=== PATIENT | male | born 1945 | race Caucasian/White ===

== ENCOUNTER 2020-01-14 20:18 | Emergency (ER) | payer OTHER, SELFPAY ==
--- NOTE | ~2020-01-14 | CT_ITS ---
EXAMINATION: CT abdomen pelvis w con EXAM DATE: 01/14/2020 21:46 INDICATION: Right lower quadrant pain. Vomiting. TECHNIQUE: Spiral CT of the abdomen and pelvis was performed following intravenous injection of 100 m L Omnipaque 350. Axial, coronal and sagittal images were reviewed. The dose-length product (DLP) fo r this examination was 639.25 mGy-cm. The exposure was tailored according to patient size (auto mA e xposure control), and iterative reconstruction (ASIR) was used as additional dose reduction technique . Comparison is made to prior examination from 11/30/2018. FINDINGS: There is a right inguinal hernia containing small segment of small bowel, with moderately d istended small bowel proximal to this. Uncertain whether or not this is incarcerated. Only small amou nt of ileal fluid distal to this. There is expected amount of colonic stool. Could be partial or vikash y complete obstruction. The liver, spleen, adrenal glands and pancreas are unremarkable. Gallbladder is unremarkable. No bi liary obstruction. Portal and splenic veins are patent. Kidneys enhance symmetrically. There is no hydronephrosis. There are radiation prostate seeds. There is nodule of soft tissue projecting up i nto the bladder base, contiguous with the prostate measuring 2.6 cm in diameter most likely prostate tissue. Patient did have cystoscopy, stent placed last year, please correlate with report given that finding was present on prior study. Implanted reservoir device, penile corpora implants, tubing in th e left inguinal canal. The bladder is unremarkable. There is no retroperitoneal or pelvic lymphadeno barbara. There is mild to moderate scattered arteriosclerotic disease. The appendix is normal No free intraperitoneal gas. The heart is normal in size. Evidence of prio r ventricular infarction. There are no pericardial or pleural effusions. The lung bases are unremark able. There are no osteoblastic or osteolytic lesions identified. Bilateral L5 spondylolysis with gr kurt 1 anterolisthesis L5 on S1. Distal esophagus has mild edema, probable mild esophagitis in this p atient with stated history of vomiting. IMPRESSION: 1. Small right inguinal hernia containing small bowel loop, at least partially obstructed. Uncertain whether or not this is incarcerated. Moderately distended jejunum. 2. Reflux esophagitis. 3. Bladder base soft tissue most likely prostate extending into bladder, please correlate with prior cystoscopy, stent placement report 2019. Reviewed, dictated and finalized at location A. IMPRESSION: 1. Small right inguinal hernia containing small bowel loop, at least partially obstructed. Uncertain whether or not this is incarcerated. Moderately distende d jejunum. 2. Reflux esophagitis. 3. Bladder base soft tissue most likely prostate extending into bladder, pleas e correlate with prior cystoscopy, stent placement report 2019.
[2020-01-14 20:21] VITALS: BP 117/84; PULSE 111; RESP 20; TEMP 36.6; O2SAT 99
[2020-01-14 20:39] LABS: Basophils Percent Auto 0.3 % (0.2-1.2); Hematocrit 44.1 % (42.0-52.0); Hemoglobin 15.1 g/dL (14.0-18.0); Immature Granulocyte Absolute 0.05 K/mm3 (0.00-0.031); Immature Granulocyte Percent A 0.4 % (0-0.5); Lymphocytes Absolute Auto 1.32 K/mm3 (0.9-3.2); Lymphocytes Percent Auto 11.4 % (18.3-44.2); Mean Corpuscular HGB Conc 34.2 g/dl (32-36); Mean Corpuscular Hemoglobin 29.9 pg (26-34); Mean Corpuscular Volume 87.3 fl (80-100); Mean Platelet Volume 10.4 fl (7.4-10.4); Monocytes Absolute Auto 0.9 K/mm3 (0.1-0.6); Monocytes Percent Auto 7.5 % (2.6-8.5); Neutrophils Absolute Auto 9.3 K/mm3 (1.3-6.7); Neutrophils Percent Auto 80.4 % (45.5-73.1); Platelet Count Result 319 k/mm3 (150-375); Red Blood Count 5.05 M/mm3 (4.6-6.20); Red Cell Distribution Width 13.2 % (11.5-14.5); White Blood Count 11.6 K/mm3 (4.5-10.0)
[2020-01-14 20:52] LABS: Alanine Aminotransferase 20 U/L (4-50); Albumin Level 4.6 g/dL (3.5-5.1); Alkaline Phosphatase 110 U/L (38-126); Anion Gap 13 mmol/L (8-16); Aspartate Amino Transferase 30 U/L (17-59); Bilirubin,Total 0.9 mg/dL (0.2-1.3); Blood Urea Nitrogen 36 mg/dL (9-20); Carbon Dioxide 27 mmol/L (22-30); Chloride 95 mmol/L (98-107); Estimated CRCL calculation 43 ml/min; Estimated Glomerular Filt Rate 50; Glucose 286 mg/dL (75-110); Lipase 17 U/L (23-300); Potassium 4.2 mmol/L (3.4-5.0); Sodium 135 mmol/L (137-145)
--- NOTE | 2020-01-14 20:57 | ED.ABDPAIN ---
HPI - Abdominal Pain General Chief Complaint: Abdominal Pain Stated Complaint: hernia/GERD Time Seen by Provider: 01/14/20 20:50 History of Present Illness HPI narrative: RLQ pain since yesterday. He felt bulging near the inguinal ligament, which he assumed was a hernia. He has felt it in the past, but never this big. Additionally he noted that his abdomen was very distended. He was vomiting throughout the day and he now has minimal pain, his abdomen is no longer distended, and the bulging is gone. Additionally he was having difficulty controlling his blood sugar. Related Data Home Medications Medication Instructions Recorded Confirmed aspirin 81 mg tablet,delayed 81 mg PO DAILY 04/20/19 release clopidogrel 75 mg tablet 75 mg PO DAILY 04/20/19 fluticasone propionate 50 1 spray NASAL DAILY 04/20/19 mcg/actuation nasal spray,suspension insulin syr/ndl U100 half magdy 0.3 #10 each 04/20/19 mL 31 gauge x 1/4 nitroglycerin 0.3 mg sublingual 0.3 mg SUBLINGUAL Q5M PRN 04/20/19 tablet pantoprazole 20 mg tablet,delayed 20 mg PO QAM 04/20/19 release pantoprazole 20 mg tablet,delayed 20 mg PO QAM 04/20/19 release Allergies Allergy/AdvReac Type Severity Reaction Status Date / Time No Known Allergies Allergy Unverified 11/30/18 12:59 Review of Systems Review of Systems: All systems reviewed & are unremarkable except as noted in HPI and below Constitutional: Constitutional: Denies fever(s) Cardiovascular: Cardiovascular: Denies chest pain Respiratory: Respiratory: Denies dyspnea Gastrointestinal: Gastrointestinal: Reports abdominal pain, Reports nausea and Reports vomiting Genitourinary: Genitourinary: Denies dysuria Neurologic: Denies weakness [facility] Past Medical History Medical History ASHD (arteriosclerotic heart disease) Diabetes mellitus HLD (hyperlipidemia) HTN (hypertension) Family History Family History Father Diabetes mellitus Acute myocardial infarction, Onset Age: 84 Mother Family history of malignant neoplasm of ovary, Onset Age: 78 Other Family history of malignant neoplasm Hypertension Social History Social History Smoking status: Light tobacco smoker Smoking end date: 06/06/15 Alcohol intake: never Exam Const: General: no acute distress and alert Nutritional Appearance: well nourished Orientation/consciousness: patient oriented x3 HENMT: Head: normal to inspection Resp: Effort & Inspection: normal respiratory effort Auscultation: clear to auscultation bilaterally Cardio: Rate: regular rate Rhythm: regular rhythm GI: Inspection: non-distended GI Palp: Yes Soft to palpation and Yes Tenderness to palpation present (GI) (mild over right inguinal ligament) Skin: General skin exam: normal color Neuro: General: patient oriented x3 and moves all extremities Speech: normal speech Extrem: General: normal to inspection Course Vital Signs Vital signs: Vital Signs Temperature 36.6 C 01/14/20 20:21 Pulse Rate 111 H 01/14/20 20:21 Respiratory Rate 20 01/14/20 20:21 Blood Pressure 117/84 01/14/20 20:21 Pulse Oximetry 99 01/14/20 20:21 Temperature 36.3 C L 01/14/20 22:55 Pulse Rate 85 01/14/20 22:55 Respiratory Rate 19 01/14/20 22:55 Blood Pressure 125/80 01/14/20 22:55 Pulse Oximetry 95 01/14/20 22:55 MDM - Abdominal Pain MDM Narrative Medical decision making narrative: History concerning hernia with obstruction. Likely resolved at this time. Will obtain CT CT shows hernia with likely partial obstruction. On reevaluation he now has no pain and feels that the hernia is reduced. I cannot palpate it on exam. I discussed the case with Dr. Garcia. He believes that he is safe for discharge, but offered to admit him if
[2020-01-14 21:07] LABS: Add Urine Microscopic? YES; Appearance Urine Clear (Clear); Bilirubin Urine Negative (Negative); Blood Urine 1+ (Negative); Color Urine Yellow (Yellow); Glucose Urine UA 3+ mg/dL (Negative); Hyaline Casts Urine 15-19 /lpf; Ketones Urine Trace mg/dL (Negative); Leukocyte Esterase Ur Negative LEU/UL (Negative); Mucus Urine Rare /lpf; Nitrate Urine Negative (Negative); Protein Urine 1+ mg/dL (Negative); Squamous Epithelial Cell Urine Rare /hpf (Few)
[2020-01-14] MEDS: ONDANSETRON INJ 4 MG/2 ML VIAL IV PUSH (21:12)
[2020-01-14] MEDS: SODIUM CHLORIDE 0.9% IV 1,000 ML 999 ML IV CONT (21:12)
[2020-01-14 22:25] VITALS: BP 131/75; PULSE 99; RESP 18; O2SAT 94
--- NOTE | 2020-01-14 22:26 | PC.NURSE ---
pt placed on 1 l o2 due to oxygen sat in low 90's
[2020-01-14 22:55] VITALS: BP 125/80; PULSE 85; RESP 19; TEMP 36.3; O2SAT 95
== END 2020-01-14 22:56 | disposition home or self-care (01) ==
PROVIDERS: Emergency Medicine; Emergency Provider Emergency Medicine; PCP Emergency Medicine
DX: K40.30 Unilateral inguinal hernia, with obstruction, without gangrene, not specified as recurrent (principal); I25.10 Atherosclerotic heart disease of native coronary artery without angina pectoris; E11.9 Type 2 diabetes mellitus without complications; E78.5 Hyperlipidemia, unspecified; I10 Essential (primary) hypertension; Z87.891 Personal history of nicotine dependence; Z79.82 Long term (current) use of aspirin; Z79.4 Long term (current) use of insulin
CPT/HCPCS: 36415; 74177; 80053; 81001; 83690; 85025; 87086; 96361; 96374; 96375; 99284; J2405; J3010; J7030; Q9967

== ENCOUNTER 2020-01-25 12:42 | Outpatient (CLI) | payer OTHER, SELFPAY ==
--- NOTE | 2020-01-25 12:44 | ECG_ITS ---
Measurements Intervals Wilmer Rate: 57 P: 48 WA: 196 QRS: -30 QRSD: 105 T: 63 QT: 405 QTc: 395 Interpretive Statements SINUS BRADYCARDIA POSSIBLE LEFT ATRIAL ENLARGEMENT BORDERLINE AV CONDUCTION DELAY EXTENSIVE ANTERIOR INFARCT, AGE INDETERMINATE INFERIOR INFARCT, AGE INDETERMINATE BASELINE ARTIFACT- I, II, AVR ABNORMAL ECG Electronically Signed On 01-25-2020 12:53:06 CDT by Konrad Sheikh D.O.
== END 2020-01-25 12:43 | disposition home or self-care (01) ==
PROVIDERS: PCP Emergency Medicine; Visit Provider Surgery
DX: Z01.810 Encounter for preprocedural cardiovascular examination (principal); I10 Essential (primary) hypertension; R94.31 Abnormal electrocardiogram [ECG] [EKG]
CPT/HCPCS: 93005

== ENCOUNTER 2020-01-29 01:57 | Outpatient (CLI) | payer OTHER, SELFPAY ==
[2020-01-29 18:23] LABS: SARS-CoV-2 RNA PCR Negative
== END 2020-01-29 01:58 | disposition home or self-care (01) ==
LOC: ANHCOVIDDT 01:57
PROVIDERS: PCP Emergency Medicine; Visit Provider Surgery
DX: Z01.812 Encounter for preprocedural laboratory examination (principal); Z20.828 Contact with and (suspected) exposure to other viral communicable diseases
CPT/HCPCS: 87635; C9803; U0003

== ENCOUNTER 2020-01-31 00:52 | Day surgery (SDC) | payer OTHER, SELFPAY ==
[2020-01-24 14:56] VITALS: BMI 27.2
--- NOTE | 2020-01-30 11:31 | WPDANESEPPF ---
Anes - Initial Pre Proc Eval Procedure: Operation Date: 01/31/20 14:00 Proposed Procedures p Right Inguinal Hernia Repair - Gurvinder Balbuena MD Date/Time: 01/30/20 11:31 Surgeon: Gurvinder Balbuena MD Pre Op Diagnosis: Right Inguinal Hernia Patient Data Age: 74 Gender: M Height: 1.78 m Weight: 86.2 kg Allergies Allergy/AdvReac Type Severity Reaction Status Date / Time No Known Allergies Allergy Unverified 01/24/20 14:50 Home Medications Medication Instructions Recorded Confirmed Type aspirin 81 mg tablet,delayed 81 mg PO DAILY 04/20/19 01/24/20 History release clopidogrel 75 mg tablet 75 mg PO DAILY 04/20/19 01/24/20 History fluticasone propionate 50 1 spray NASAL PRN PRN 04/20/19 01/24/20 History mcg/actuation nasal spray,suspension insulin syr/ndl U100 half magdy 0.3 #10 each 04/20/19 01/24/20 History mL 31 gauge x 1/4 pantoprazole 20 mg tablet,delayed 20 mg PO QAM 04/20/19 01/24/20 History release amlodipine 10 mg tablet 10 mg PO DAILY #90 tablet 11/26/19 01/24/20 Rx lisinopril 20 mg tablet 20 mg PO DAILY #90 tablet 11/28/19 01/24/20 Rx insulin aspart U-100 100 unit/mL See Rx Instructions SUB-Q TID #30 12/24/19 01/24/20 Rx subcutaneous solution ml atorvastatin 40 mg PO DAILY 01/24/20 01/24/20 History insulin glargine [Lantus U-100 40 unit SUBCUT QAM 01/24/20 01/24/20 History Insulin] Patient hx anesthesia problems: none Family hx anesthesia problems: none PMFSH Past Medical History Medical History (Updated 01/31/20 @ 12:12 by Jose Linda DO) ASHD (arteriosclerotic heart disease) CAD (coronary artery disease) stent x 22018 CKD (chronic kidney disease), stage III Diabetes mellitus HLD (hyperlipidemia) HTN (hypertension) Social History Social History Smoking status: Former smoker Tobacco type: cigars Smoking end date: 01/01/15 Additional smoking assessment comments: SMOKED 2-3 CIGARS/DAY Alcohol intake: never Living arrangements: with family Spiritual care concerns: No Anes - Eval Final PreProcedure Day of Procedure 01/30/20 11:31 Patient weight: overweight Heart: regular rate and rhythm Lungs: clear to auscultation and normal air movement Airway: Mallampati scale class II Neurological: alert and oriented Last oral intake: >/= 8 hours ASA classification: III Emergent: no Anesthetic plan: proceed Anesthesia type and monitoring: general GIVS and standard monitoring Informed Consent: The patient's anesthetic plan and its attendant risks and benefits were discussed with the patient/family/POA. Questions were solicited and answers provided to the satisfaction of the patient/family/POA.
--- NOTE | 2020-01-31 12:00 | WPDHPUPDATE1 ---
History and Physical Update Update Date/Time: 01/31/20 12:00 History and Physical has been reviewed, including an updated exam of the patient. There are NO changes in the patient's condition. Risks, benefits, and alternatives have been discussed and questions answered. Patient agrees to proceed with procedure.
[2020-01-31] MEDS: LACTATED RINGERS 1,000 ML 30 ML IV CONT ×2 (12:45→16:04)
[2020-01-31 12:48] LABS: Glucose Point of Care 148 (65-105)
[2020-01-31] MEDS: ACETAMINOPHEN 500 MG TABLET 1000 MG PO (12:49)
[2020-01-31] MEDS: KETOROLAC 15 MG/ML VIAL (*BKC) IV PUSH (12:49)
[2020-01-31 13:41] VITALS: BP 118/73; PULSE 61; RESP 18; TEMP 36.6; O2SAT 99
[2020-01-31] MEDS: ceFAZolin 2 GM/D5W 50 ML 2 GM/50 ML BAG IVPB (13:58)
--- NOTE | 2020-01-31 15:28 | PM.PROC ---
Procedure Note - Detailed Date of procedure: 01/31/20 Pre-op diagnosis: Right Inguinal Hernia Right inguinal hernia Post-op diagnosis: same (Indirect hernia) Procedure performed: Repair of right inguinal hernia with 6 cm Parietex hernia mesh system Description of procedure: The patient was taken to surgery and IV sedation was administered. The right groin and genitalia were prepped and draped. Proposed incision was marked on the skin. Local was infiltrated into the skin and the deeper subcutaneous tissues. Incision was made and deepened through the subcutaneous. Crossing veins were cauterized and divided. Dissection was carried through Jeronimo's fascia down to the external oblique aponeurosis. The aponeurosis was exposed as was the external ring. Additional local anesthesia was infiltrated deep to the aponeurosis in the area of the spermatic cord and inguinal canal contents. The penile implant and its apparatus were carefully avoided throughout the surgery and were not exposed. The aponeurosis was opened laterally and extended medially through the external ring. The leaves of the aponeurosis were dissected free from the spermatic cord. The ileoinguinal nerve was divided laterally and discarded. The hernia sac was very obvious as it was filled with a very firm but smooth nodule suggestive of necrotic fat. No evidence of bowel was noted. The cord was then mobilized medially on a [place] drain. The cord was dissected back to the internal ring. Dissection was then carried out in the anteromedial spermatic cord. The hernia sac was dissected back to the internal ring. I then opened the hernia sac at its apex. I found what appeared to be infarcted omentum in the hernia. I dissected this out and divided it near the internal ring. It was sent off as a specimen labeled right inguinal hernia content. I then suture ligated the end of the hernia sac with 3 0 Vicryl. The sac was then allowed to retract into the retroperitoneum. A 6 centimeter Parietex [place] was chosen. It was folded to form a plug. It was placed in the defect. The edges were sutured to the transversalis fascia with interrupted 3 0 Vicryl suture. The hernia defect was then partially closed with some additional 3 0 Vicryl suture. The patch was then cut to the appropriate size and placed over the inguinal canal floor. The lateral leaves were passed beyond the cord. The cord was then laid over the patch. The external oblique aponeurosis was closed with interrupted 3 0 Vicryl suture. Jeronimo's fascia was closed with interrupted 3 0 Vicryl suture. Four 0 Vicryl subcuticular skin sutures were placed. The skin was closed finally with a running 4 0 Monocryl skin suture. The wound was dressed with Exofin surgical adhesive. The patient was awakened and taken to recovery in good condition. Sponge and needle counts were correct x2. Anesthesia: MAC and local (0.5% Marcaine with Exparel) Surgeon: Gurvinder Balbuena MD Pediatrician Active Practice: [facility] Estimated blood loss (mL): 5 Drains: No Packing: No Pathology: yes ( right inguinal hernia contents suggestive of fat necrosis of incarcerated hernia and omentum) Complications: None Condition: stable Disposition: same day Findings: Indirect inguinal hernia. No sliding hernia was noted.
[2020-01-31 15:35] VITALS: BP 116/65; PULSE 56; RESP 12; O2SAT 94
[2020-01-31 15:43] LABS: Glucose Point of Care 95 (65-105)
[2020-01-31 16:05] VITALS: BP 157/80; PULSE 67; RESP 16
== END 2020-01-31 16:53 | disposition home or self-care (01) ==
PROVIDERS: PCP Emergency Medicine; Visit Provider Surgery
PROC: (CPT 49505; principal; 2020-01-31 14:00)
DX: K40.90 Unilateral inguinal hernia, without obstruction or gangrene, not specified as recurrent (principal); I12.9 Hypertensive chronic kidney disease with stage 1 through stage 4 chronic kidney disease, or unspecified chronic kidney disease; E11.22 Type 2 diabetes mellitus with diabetic chronic kidney disease; N18.3 Chronic kidney disease, stage 3 (moderate); I25.10 Atherosclerotic heart disease of native coronary artery without angina pectoris; E78.5 Hyperlipidemia, unspecified; Z95.5 Presence of coronary angioplasty implant and graft; Z87.891 Personal history of nicotine dependence; Z79.02 Long term (current) use of antithrombotics/antiplatelets; Z79.82 Long term (current) use of aspirin; Z79.4 Long term (current) use of insulin
CPT/HCPCS: 49505; 88304; A9270; C1781; C9290; J0690; J1885; J2704; J3010; J7120

== ENCOUNTER 2020-08-11 11:11 | Outpatient (CLI) | payer OTHER, MEDICARE, SELFPAY | END 2020-08-11 11:12 | disposition home or self-care (01) | LOC: ANHCOVIDVC 11:11 | PROVIDERS: PCP Emergency Medicine | DX: Z23 Encounter for immunization (principal) | CPT/HCPCS: 0001A; 91300 ==

== ENCOUNTER 2020-09-01 11:10 | Outpatient (CLI) | payer OTHER, MEDICARE, SELFPAY | END 2020-09-01 11:11 | disposition home or self-care (01) | LOC: ANHCOVIDVC 11:10 | PROVIDERS: PCP Emergency Medicine | DX: Z23 Encounter for immunization (principal) | CPT/HCPCS: 0002A; 91300 ==

== ENCOUNTER 2021-01-09 13:51 | Emergency (ER) | payer OTHER, SELFPAY ==
[2021-01-09] VITALS (10 sets, daily range): BP systolic 123–160; BP diastolic 72–87; PULSE 65–84; RESP 7–20; TEMP 36.6; O2SAT 99–100
--- NOTE | ~2021-01-09 | XR_ITS ---
XR elbow LT min 3V DATE: 01/09/2021 14:49 INDICATION: Fall off of roof. Left elbow injury, pain TECHNIQUE: 4 views COMPARISON: None FINDINGS: There is a very subtle nondisplaced radial neck fracture. There is mild elevation of the fa t pads consistent with hemarthrosis. No dislocation. IMPRESSION: Very subtle nondisplaced radial neck fracture with hemarthrosis Reviewed, dictated and finalized at location B.
--- NOTE | ~2021-01-09 | CT_ITS ---
EXAMINATION: CT facial bones wo con DATE: 01/09/2021 14:54 INDICATION: Fall off of ladder. Head injury. TECHNIQUE: Computed tomography (CT) of the facial bones and maxillofacial region was performed withou t intravenous contrast. Automated exposure control and iterative reconstruction technique were employ ed. Exam dose: 272.57 mGy-cm total exam DLP. COMPARISON: None. FINDINGS: There is a comminuted fracture of the head and neck of the right mandible. There is associa willem dislocation at the right temporomandibular joint. The frontozygomatic sutures, orbital rims and guidry, zygomatic arches and remainder the facial bones are intact. . IMPRESSION: Fracture dislocation of the right temporal mandibular joint; comminuted fracture of the right mandibular condyle and neck Reviewed, dictated and finalized at Location A. Reviewed, dictated and finalized at location B. IMPRESSION: Fracture dislocation of the right temporal mandibular joint; commi nuted fracture of the right mandibular condyle and neck
--- NOTE | ~2021-01-09 | XR_ITS ---
EXAMINATION: XR wrist LT min 3V DATE: 01/09/2021 14:50 INDICATION: Left wrist pain, initial encounter TECHNIQUE: Posteroanterior, ulnar deviation, oblique, and lateral views of the left wrist were obtain ed. COMPARISON: None available FINDINGS: There is an acute, traumatic, closed fracture of the pisiform. No additional acute osseous abnormality is identified. There is soft tissue swelling surrounding the fracture. IMPRESSION: 1. Acute pisiform fracture. Reviewed, dictated and finalized at location A. IMPRESSION: 1. Acute pisiform fracture.
--- NOTE | ~2021-01-09 | CT_ITS ---
EXAMINATION: CT chest abdomen pelvis w con DATE: 01/09/2021 16:21 INDICATION: Right flank pain. TECHNIQUE: Computed tomography (CT) of the chest, abdomen, and pelvis was performed with 100 mL Omnip aque 350 intravenous contrast. Automated exposure control and iterative reconstruction technique were employed. The dose-length product was 1584.82 mGy-cm. COMPARISON: CT abdomen and pelvis 01/14/2020 FINDINGS: CHEST CT: There is mild scarring at the lung apices. There is mild atelectasis bilaterally. No pleural effusion . There is left ventricular enlargement of the heart with old infarct. No pericardial effusion. There is a small sliding hiatal hernia. There is mild right-sided gynecomastia. There is mild thoracic spo ndylosis. ABDOMEN/PELVIS CT: The liver, gallbladder, spleen, pancreas, adrenal glands, and kidneys are normal. A penile prosthesis is noted. The prostate is mildly enlarged and contains brachytherapy seeds. The appendix is normal. There are changes of right inguinal hernia repair. There is a right inguinal hernia containing the ap pendix. There are no pathologically enlarged lymph nodes. There is no free intraperitoneal fluid. The re are chronic bilateral L5 pars defects. There is 4 mm anterolisthesis of L4 on L5 L5 on S1. There i s moderate lumbar spondylosis. IMPRESSION: 1. 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 2. Small sliding hiatal hernia. 3. Recurrent right inguinal hernia containing normal appendix. Reviewed, dictated and finalized at location A.
--- NOTE | ~2021-01-09 | CT_ITS ---
EXAMINATION: CT brain wo con INDICATION: Head injury COMPARISON: 07/10/2015 TECHNIQUE: Standard unenhanced head CT. The dose-length product (DLP) was 605.33 mGy-cm. The mA was a djusted according to patient size. Iterative reconstruction technique was employed. FINDINGS: There is no acute intraparenchymal hemorrhage. No evidence of mass lesion. No evidence of a cute infarction. There is mild periventricular and subcortical hypodensity probably related to small vessel ischemic disease. There is mild prominence of the sulci and ventricles related to cerebral atr ophy. Intracranial calcified cerebral atherosclerosis is noted. There are no extra-axial collections. There is no mass effect or midline shift. Changes in the right globe are likely from ocular lens teodora hallie. Changes in the left lobe likely reflect injected silicone oil. There is mild mucosal thickening of the paranasal sinuses. IMPRESSION: 1. No acute intracranial abnormality. 2. Age related findings. Reviewed, dictated and finalized at location A.
--- NOTE | ~2021-01-09 | XR_ITS ---
EXAMINATION: XR chest 1V portable INDICATION: Chest pain TECHNIQUE: Portable AP chest at 1444 hours COMPARISON: 08/15/2013 FINDINGS: The lungs are free of acute opacities. There is no pleural effusion or pneumothorax. Cardio megaly is noted. There is moderate to severe cervical spondylosis. A coronary artery stent is noted. IMPRESSION: 1. No acute cardiopulmonary abnormality. Reviewed, dictated and finalized at location A.
[2021-01-09 15:17] LABS: Basophils Absolute Auto 0.1 K/mm3 (0.0-0.1); Basophils Percent Auto 0.5 % (0.2-1.2); Eosinophils Percent Auto 0.2 % (0-4.4); Hemoglobin 14.1 g/dL (14.0-18.0); Immature Granulocyte Absolute 0.06 K/mm3 (0.00-0.031); Immature Granulocyte Percent A 0.5 % (0-0.5); Lymphocytes Absolute Auto 1.17 K/mm3 (0.9-3.2); Lymphocytes Percent Auto 9.2 % (18.3-44.2); Mean Corpuscular HGB Conc 32.8 g/dl (32-36); Mean Corpuscular Hemoglobin 29.1 pg (26-34); Mean Corpuscular Volume 88.8 fl (80-100); Mean Platelet Volume 10.1 fl (7.4-10.4); Monocytes Absolute Auto 0.9 K/mm3 (0.1-0.6); Monocytes Percent Auto 7.1 % (2.6-8.5); Neutrophils Absolute Auto 10.5 K/mm3 (1.3-6.7); Neutrophils Percent Auto 82.5 % (45.5-73.1); Platelet Count Result 244 k/mm3 (150-375); Red Blood Count 4.84 M/mm3 (4.6-6.20); Red Cell Distribution Width 12.4 % (11.5-14.5); White Blood Count 12.7 K/mm3 (4.5-10.0)
[2021-01-09] MEDS: TETANUS,DIPHTHERIA,AC PERTUSSIS ADULT (0.5 ML) BOOSTRIX IM (15:18)
[2021-01-09 15:29] LABS: Partial Thromboplastin Time 28.7 SECONDS (22.3-36.8); Prothrombin Time 12.7 Seconds (11.1-14.7)
[2021-01-09 15:30] LABS: Alanine Aminotransferase 25 U/L (4-50); Albumin Level 4.3 g/dL (3.5-5.1); Alkaline Phosphatase 120 U/L (38-126); Anion Gap 7 mmol/L (8-16); Aspartate Amino Transferase 36 U/L (17-59); Bilirubin,Total 0.7 mg/dL (0.2-1.3); Blood Urea Nitrogen 16 mg/dL (9-20); Calcium 9.6 mg/dL (8.4-10.2); Carbon Dioxide 27 mmol/L (22-30); Chloride 101 mmol/L (98-107); Estimated CRCL calculation 66 ml/min; Estimated Glomerular Filt Rate > 60; Glucose 176 mg/dL (65-110); Potassium 3.9 mmol/L (3.4-5.0); Sodium 135 mmol/L (137-145)
--- NOTE | 2021-01-09 16:58 | ED.FALL ---
HPI - Fall General Chief Complaint: Fall Stated Complaint: fall from roof Time Seen by Provider: 01/09/21 14:19 Source: patient and RN notes reviewed Mode of arrival: ambulatory Limitations: no limitations History of Present Illness HPI Narrative: This is a 75 year old male who presents for evaluation of facial pain and left wrist pain s/p fall. Patient states he was getting off his roof, and he missed a step on his ladder causing him to fall. He states he fell forward onto his gravel drive way hitting his face. He denies LOC or headache. He has facial swelling, right jaw pain and tongue bleeding. He denies neck pain. He denies sob or abdominal pain. He also reports left elbow and left wrist pain. He has abrasions to both lower legs but he denies pain. He has been able to ambulate without difficulty. He takes Plavix for heart disease with stents. Related Data Home Medications Medication Instructions Recorded Confirmed clopidogrel 75 mg tablet 75 mg PO DAILY 04/20/19 12/02/20 fluticasone propionate 50 1 spray NASAL PRN PRN 04/20/19 12/02/20 mcg/actuation nasal spray,suspension Allergies Allergy/AdvReac Type Severity Reaction Status Date / Time No Known Allergies Allergy Verified 01/09/21 14:13 Review of Systems Review of Systems: All systems reviewed & are unremarkable except as noted in HPI and below PMFSH Past Medical History Medical History ASHD (arteriosclerotic heart disease) CAD (coronary artery disease) stent x 2018 CKD (chronic kidney disease), stage III Diabetes mellitus HLD (hyperlipidemia) HTN (hypertension) Surgical History Surgical History H/O inguinal hernia repair 01/31/20 [facility] repair with 6cm Parietex mesh. Family History Family History Father Diabetes mellitus Acute myocardial infarction, Onset Age: 84 Mother Family history of malignant neoplasm of ovary, Onset Age: 78 Other Family history of malignant neoplasm Hypertension Social History Social History Smoking status: Former smoker Tobacco type: cigars Smoking end date: 06/06/15 Additional smoking assessment comments: SMOKED 2-3 CIGARS/DAY Alcohol intake: never Spiritual care concerns: No Exam Const: General: no acute distress and alert Orientation/consciousness: patient oriented x3 HENMT: Head: normocephalic Ears: TM's normal bilaterally General nose exam: Other nasal findings present (facial nose swelling) Chest: Chest palpation & inspection: tenderness rib (Right lateral) Resp: Effort & Inspection: normal respiratory effort and no retractions Auscultation: clear to auscultation bilaterally Cardio: Rate: regular rate Rhythm: regular rhythm Heart sounds: no murmurs GI: GI Palp: Yes Soft to palpation, Yes Tenderness to palpation present (GI) (RUQ, ) and No Guarding due to palpation present (GI) Auscultation: bowels sounds not normal Skin: Other: abrasions to bilateral anterior lower leg Neuro: General: patient oriented x3 and moves all extremities Extrem: Other: FROM to all extremities; TTP left dorsum wrist with mild swelling. Psych: Mental Status: mental status grossly normal Affect: normal affect Course Reevaluation(s) Reevaluation #1: I have discussed with patient findings of jaw fracture dislocation and left wrist and elbow fracture. He will be placed in c collar and long arm splint. He has been accepted [facility] Date: 01/09/21 Time: 17:12 Consultations Consultation #1: I discussed case with DR. Veliz in [facility]. She accepts patient to [facility] . request patient placed in spine precautions. Date: 01/09/21 Time: 17:05 Vital Signs Vital signs: Vital Signs Temperature 97.8 F 01/09/21 14:09 Pulse Rate 75
[2021-01-09 17:49] LABS: Glucose Point of Care 167 mg/dl (65-105)
== END 2021-01-09 18:53 | disposition short-term general hospital (02) ==
PROVIDERS: Emergency Provider General Practice; PCP Emergency Medicine
DX: S52.135A Nondisplaced fracture of neck of left radius, initial encounter for closed fracture (principal); S02.611A Fracture of condylar process of right mandible, initial encounter for closed fracture; S02.69XA Fracture of mandible of other specified site, initial encounter for closed fracture; S62.162A Displaced fracture of pisiform, left wrist, initial encounter for closed fracture; I25.10 Atherosclerotic heart disease of native coronary artery without angina pectoris; Z95.5 Presence of coronary angioplasty implant and graft; E11.22 Type 2 diabetes mellitus with diabetic chronic kidney disease; I12.9 Hypertensive chronic kidney disease with stage 1 through stage 4 chronic kidney disease, or unspecified chronic kidney disease; N18.30 Chronic kidney disease, stage 3 unspecified; E78.5 Hyperlipidemia, unspecified; Z87.891 Personal history of nicotine dependence; Z79.4 Long term (current) use of insulin; K44.9 Diaphragmatic hernia without obstruction or gangrene; K40.90 Unilateral inguinal hernia, without obstruction or gangrene, not specified as recurrent; I51.7 Cardiomegaly; W11.XXXA Fall on and from ladder, initial encounter
CPT/HCPCS: 29105; 36415; 70450; 70486; 71045; 71260; 73080; 73110; 74177; 80053; 82948; 85025; 85610; 85730; 90471; 90715; 99285; L0140; Q9967

== ENCOUNTER 2021-02-10 11:12 | Outpatient (CLI) | payer OTHER, SELFPAY ==
--- NOTE | ~2021-02-10 | XR_ITS ---
EXAMINATION: XR abdomen/kub 1V EXAM DATE: 02/10/2021 11:33 INDICATION: Calculus of RT kidney, TECHNIQUE: Frontal projection of the upper abdomen, frontal projection lower abdomen/pelvis for inter pretation. Correlation is made to chest abdomen pelvis CT 01/09/2021. FINDINGS: There is moderate amount of colonic stool and gas. No small bowel dilation, nonobstructiv e bowel gas pattern. There are no suspicious calcifications identified. There is no organomegaly suspected. There are bony degenerative changes. IMPRESSION: Unremarkable abdomen x-ray exam. Reviewed, dictated and finalized at location A.
== END 2021-02-10 11:13 | disposition home or self-care (01) ==
LOC: ANHIMG 11:14
PROVIDERS: PCP Emergency Medicine; Visit Provider Urology
DX: N20.0 Calculus of kidney (principal)
CPT/HCPCS: 74018

== ENCOUNTER 2023-09-17 08:00 | Emergency (ER) | payer OTHER, SELFPAY ==
[2023-09-17 08:02] VITALS: BP 146/94; PULSE 84; RESP 18; TEMP 36.6; O2SAT 100
--- NOTE | 2023-09-17 08:15 | ED.NAVMDI ---
HPI - Nausea/Vomiting/Diarrhea General Chief complaint: Nausea/Vomiting/Diarrhea Stated complaint: Diarrhea for Months Time Seen by Provider: 09/17/23 08:15 History of Present Illness HPI Narrative: Patient is a 78 year old male with history of CAD s/p PCI x2 in 2019, CKD stage III, CM, GERD, HTN, HLD, here with diarrhea. Patient notes that his diarrhea has been present for the last 3 months. He denies any prodromal illness, antibiotic use, travel. He notes that he defecates 4 to 5 times a day, is usually liquid in nature. He did contact his primary care doctor's office 1 month ago, they recommended that he go to the emergency department. He was not seen at the emergency department or his primary care doctor since that recommendation. He notes that has been constant, no associated abdominal pain, nausea, vomiting, fever, chills. He denies blood in his stool. His last colonoscopy was about 5 years ago, notes that he has had a polyp here and there during colonoscopies but has otherwise been pretty unremarkable. No personal or family history of colon cancer. He states he has lost 10-12 lb over the last 3 months due to this diarrhea. He additionally is complaining of some lower back pain which has been ongoing for the last 6-8 months. This has been addressed by his primary care doctor, he takes Flexeril, he did take a dose earlier today for his back pain and this seems to have resolved his back pain at this time. Denies any urinary symptoms. Related Data Home Medications Medication Instructions Recorded Confirmed atorvastatin 80 mg tablet 80 mg PO DAILY 11/03/22 06/29/23 carvedilol 6.25 mg tablet 6.25 mg PO BID 11/03/22 06/29/23 cholecalciferol (vitamin D3) 100 100 mcg PO DAILY 11/03/22 06/29/23 mcg (4,000 unit) tablet empagliflozin 10 mg tablet 10 mg PO DAILY 11/03/22 06/29/23 (Jardiance) furosemide 40 mg tablet 40 mg PO DAILY 11/03/22 06/29/23 potassium chloride 10 mEq 10 meq PO DAILY 11/03/22 06/29/23 capsule,extended release sacubitril 49 mg-valsartan 51 mg 1 tablet PO BID 11/03/22 06/29/23 tablet (Entresto) spironolactone 25 mg tablet 25 mg PO DAILY 11/03/22 06/29/23 Allergies Allergy/AdvReac Type Severity Reaction Status Date / Time No Known Allergies Allergy Verified 09/17/23 08:05 Review of Systems Review of Systems: All systems reviewed & are unremarkable except as noted in HPI and below PMFSH Past Medical History Medical History (Updated 09/17/23 @ 11:45 by Yaz Urias MD) Abdominal wall abscess Abnormal stress test Abscess of neck Acquired absence of other left toe(s) Acute recurrent maxillary sinusitis ASHD (arteriosclerotic heart disease) Blindness Body mass index (BMI) 23 or greater (10/06/15) CAD (coronary artery disease) stent x 2018 Carpal tunnel syndrome of right wrist CKD (chronic kidney disease), stage III Diabetes mellitus Elbow fracture, left Encounter for other specified surgical aftercare Epidermal inclusion cyst Erectile dysfunction Fx pisiform-closed GERD (gastroesophageal reflux disease) GERD without esophagitis Hearing loss High cholesterol History of prostate cancer History of recent fall HLD (hyperlipidemia) HLD (hyperlipidemia) HTN (hypertension) HTN (hypertension) Impacted cerumen of both ears Leg swelling Mandibular fracture Neck mass Patient had no falls in past year Pneumonia Prostate CA Radial head fracture, closed Right inguinal hernia Right-sided low back pain without sciatica SOB (shortness of breath) Type 2 diabetes mellitus without complication Vision changes Weakness of left upper extremity Wears glasses Wrist fracture, left Surgical History Surgical History (Updated 08/04/23 @ 12:36 by Joan Crowder MA) H/O heart artery stent H/O inguinal hernia repair 01/31/20 RIH repair with 6cm Parietex mesh. History of penile implant History of penile implant Family History Family History (Reviewed 06/29/23 @ 13:20 by Roque Olson
[2023-09-17 09:49] LABS: Alanine Aminotransferase 35 U/L (6-50); Albumin Level 5.1 g/dL (3.5-5.1); Alkaline Phosphatase 118 U/L (38-126); Anion Gap 5 mmol/L (4-12); Aspartate Amino Transferase 42 U/L (17-59); Bilirubin,Total 1.2 mg/dL (0.2-1.3); Blood Urea Nitrogen 16 mg/dL (9-20); Calcium 10.5 mg/dL (8.4-10.2); Carbon Dioxide 31 mmol/L (22-30); Chloride 102 mmol/L (98-107); Estimated CRCL calculation 92 ml/min; Estimated Glomerular Filt Rate > 60; Glucose 152 mg/dL (65-110); Lipase 28 U/L (23-300); Sodium 138 mmol/L (137-145)
[2023-09-17 10:11] LABS: Basophils Percent Auto 0.4 % (0.2-1.2); Eosinophils Absolute Auto 0.1 K/mm3 (0-0.3); Eosinophils Percent Auto 1.8 % (0-4.4); Hematocrit 43.3 % (42.0-52.0); Hemoglobin 14.2 g/dL (14.0-18.0); Immature Granulocyte Absolute 0.02 K/mm3 (0.00-0.031); Immature Granulocyte Percent A 0.3 % (0-0.5); Lymphocytes Percent Auto 23.9 % (18.3-44.2); Mean Corpuscular HGB Conc 32.8 g/dl (32-36); Mean Corpuscular Hemoglobin 29.6 pg (26-34); Mean Corpuscular Volume 90.2 fl (80-100); Mean Platelet Volume 10.6 fl (7.4-10.4); Monocytes Absolute Auto 0.6 K/mm3 (0.1-0.6); Monocytes Percent Auto 9.6 % (2.6-8.5); Neutrophils Absolute Auto 4.3 K/mm3 (1.3-6.7); Platelet Count Result 167 k/mm3 (150-375); White Blood Count 6.7 K/mm3 (4.5-10.0)
[2023-09-17 10:51] LABS: IFOB Positive Control Positive; Immunochemical Fecal Occult Bl Negative (N)
[2023-09-17 11:29] LABS: Toxigenic C. Diff NEGATIVE (NEGATIVE)
== END 2023-09-17 12:05 | disposition home or self-care (01) ==
PROVIDERS: Emergency Provider Student in an Organized Health Care Education/Training Program; PCP Emergency Medicine
DX: R19.7 Diarrhea, unspecified (principal); I25.10 Atherosclerotic heart disease of native coronary artery without angina pectoris; I12.9 Hypertensive chronic kidney disease with stage 1 through stage 4 chronic kidney disease, or unspecified chronic kidney disease; E11.22 Type 2 diabetes mellitus with diabetic chronic kidney disease; N18.30 Chronic kidney disease, stage 3 unspecified; E78.00 Pure hypercholesterolemia, unspecified; K21.9 Gastro-esophageal reflux disease without esophagitis; Z95.5 Presence of coronary angioplasty implant and graft; Z87.01 Personal history of pneumonia (recurrent); Z85.46 Personal history of malignant neoplasm of prostate; Z87.891 Personal history of nicotine dependence; Z79.84 Long term (current) use of oral hypoglycemic drugs; Z79.4 Long term (current) use of insulin
CPT/HCPCS: 36415; 80053; 82274; 83690; 85025; 87045; 87177; 87209; 87427; 87449; 87493; 99283

== ENCOUNTER 2024-09-09 16:10 | Emergency (ER) | payer OTHER, SELFPAY ==
[2024-09-09] VITALS (21 sets, daily range): BP systolic 158–186; BP diastolic 73–90; PULSE 55–76; RESP 10–20; TEMP 35.3–36.6; O2SAT 100
--- NOTE | ~2024-09-09 | XR_ITS ---
CHEST RADIOGRAPH CLINICAL HISTORY: sob . COMPARISON: 01/09/2021 TECHNIQUE: Single portable view of the chest. FINDINGS The left mid lung is partially obscured due to pacemaker/AICD generator. Wires project over the right atrium and right ventricle. The remainder of the cardiomediastinal silhouette is otherwise unremarkable. The lungs are clear. IMPRESSION: No focal infiltrate or effusion. Reviewed, dictated and finalized at location A.
[2024-09-09] MEDS: DEXTROSE 10% IV CONT (16:19)
[2024-09-09 16:46] LABS: Basophils Percent Auto 0.4 % (0.2-1.2); Eosinophils Absolute Auto 0.1 K/mm3 (0-0.3); Eosinophils Percent Auto 1.3 % (0-4.4); Hematocrit 47.8 % (42.0-52.0); Hemoglobin 15.2 g/dL (14.0-18.0); Immature Granulocyte Absolute 0.02 K/mm3 (0.00-0.031); Immature Granulocyte Percent A 0.2 % (0-0.5); Lymphocytes Absolute Auto 3.19 K/mm3 (0.9-3.2); Lymphocytes Percent Auto 37.3 % (18.3-44.2); Mean Corpuscular HGB Conc 31.8 g/dl (32-36); Mean Corpuscular Hemoglobin 29.3 pg (26-34); Mean Corpuscular Volume 92.3 fl (80-100); Mean Platelet Volume 10.5 fl (7.4-10.4); Monocytes Absolute Auto 0.8 K/mm3 (0.1-0.6); Monocytes Percent Auto 9.3 % (2.6-8.5); Neutrophils Absolute Auto 4.4 K/mm3 (1.3-6.7); Neutrophils Percent Auto 51.5 % (45.5-73.1); Platelet Count Result 235 k/mm3 (150-375); Red Blood Count 5.18 M/mm3 (4.6-6.20); Red Cell Distribution Width 12.9 % (11.5-14.5); White Blood Count 8.6 K/mm3 (4.5-10.0)
--- OUTSIDE RECORDS SUMMARY | 2024-09-09 16:54 | XMS_ITS | CONTINUITY OF CARE DOCUMENT ---
Author Name mckinley sen Address Unknown Organization [facility] Address [address] [place] [address] [address] [place] [address] Phone [phone] Care Team Providers Care Manager Lpn Name Role Phone mckinley sen Unavailable Unavailable
--- OUTSIDE RECORDS SUMMARY | 2024-09-09 16:54 | XMS_ITS | Referral Summary ---
Author Organization [place] [address] Address [address] [place] [phone] Care Team Providers Care Hospice Bereavement Coordinator Name Role Phone Roque Hinton MD Primary Care Provide r Roque Hinton MD Unavailable [phone] Encounters Date Type Department Care Team Description 08/30/2024 Telephone [facility] [address] [place] [address] [place] [phone] Amarjit Fountain MD 08/28/2024 Telephone [facility] [address] [place] [address] [place] [phone] Amarjit Fountain MD 08/27/2024 Documentation [facility] [address] [place] [address] [place] [phone] Eliza Huizar MA 08/15/2024 1:30 PM CDT Ancillary Procedure [facility] [address] [place] [address] [place] [phone] Automatic implantable cardiac defibrillator in situ (Primary Dx); Ischemic cardiomyopathy 08/14/2024 Telephone [facility] Medical [facility] Cardiology [address] [facility] [address] [place] [phone] Amarjit Fountain MD from Last 3 Months Allergies No known active allergies Medications cholecalcifero l (VITAMIN D-3) 4,000 unit capsule Take 0.0003 capsules (1 Units total) by mouth daily Active fluticasone propionate (FLONASE) 50 mcg/actuation nasal spray Administer 1 spray into each nostril daily Active TOUJEO MAX 300 unit/mL (3 mL) pen for injection INJECT 50 UNIT SUBCUTANEOUSLY EVERY MORNING 3 Active insulin aspart (NovoLOG) 100 unit/mL vial for injection Inject 0-20 Units under the skin 3 (three) times a day before meals Sliding scale Active ascorbic acid, vitamin C, (VITAMIN C) 1,000 mg CR tablet Take 1 tablet (1,000 mg total) by mouth daily Active atorvastatin (LIPITOR) 80 mg tablet TAKE 1 TABLET BY MOUTH EVERY DAY 90 tablet [address] (PROTONIX) 40 mg EC tablet Take 1 tablet (40 mg total) by mouth every morning 4 Active tamsulosin (FLOMAX) 0.4 mg extended release capsule Take 1 capsule (0.4 mg total) by mouth daily 4 Active cyclobenzaprin e (FLEXERIL) 10 mg tablet Take 1 tablet (10 mg total) by mouth 3 (three) times a day as needed 4 Active clopidogreL (PLAVIX) 75 mg tablet TAKE 1 TABLET BY MOUTH EVERY DAY 90 tablet 3 4 Active empagliflozin (Jardiance) 10 mg tablet Take one tablet by mouth once daily. 90 tablet 2 4 Active potassium chloride ER 10 mEq CR tablet TAKE 1 TABLET BY MOUTH EVERY DAY 90 tablet 2 5 Active sacubitriL-kofi sartan (ENTRESTO) 49-51 mg tabletIndicati ons:chronic heart failure Take 1 tablet by mouth 2 (two) times a day 180 tablet 3 5 Active carvediloL (COREG) 6.25 mg tablet TAKE 1 TABLET BY MOUTH TWICE A DAY WITH MEALS 180 tablet 3 5 Active Active Problems Problem Noted Date Diagnosed Date Ischemic cardiomyopathy 03/09/2023 Automatic implantable cardiac defibrillator in s itu 03/09/2023 Overview (03/09/2023): Medtronic Dual ICD. Dx; ICM. DOI 04/13/2023-Kahanda. Delgado. Carelink remote. GERD (gastroesophageal reflux disease) Coronary artery disease invo lving samish coronary artery of samish heart with unstable angina pectoris Essential hypertension Dyslipidemia Immunizations Immunization Administration Dates Next Due Influenza, Unspecified 04/06/2017 Social History Tobacco Use Types Packs/Day Years Used Date Smoking Tobacco: Former Cigarettes Q uit: 02/12/2016 Smokeless Tobacco: Never Tobacco Cessation:Counseling Given: Not Answered Alcohol Use Standard Drinks/Week Comments No 0 (1 standard drink = 0.6 oz pur e alcohol) AUDIT-C Answer Date Recorded Q1: How often do you have a drink containing alcohol? Never 10/14/2022 Q2: How many drinks containi ng alcohol do you have on a typical day when you are drinking? Patient does not drink Q3: How often do you have si x or more drinks on one occasion? Never 10/14/2022 Personal Safety Answer Date Recorded Have you ever been in or are you currently in a harmful physical or emotional relationship or is someone making you feel afraid or unsafe? Denies 04/13/2023 Sex and Gender Information Value Date Recorded Sex Assigned at Not on file Legal Sex Male 8:49 AM INSTRUMENTATION MANAGER Gender Identity Not on file Sexual Orientation Not on file Last Filed Vital Signs Vital Sign Reading Time Taken Comments Blood Pressure 102/70 02/29/2024 1:16 PM CDT Pulse 64 02/29/2024 1:16 PM CDT Temperature 36.8 C (98.2 F) 04/13/2023 11:27 PM INSTRUMENTATION MANAGER Respiratory Rate 16 02/14/2024 11:15 AM CDT Oxygen Saturation 97% 02/29/2024 1:16 PM CDT Inhaled Oxygen Concentration - - Weight 83.1 kg (183 lb 3.2 oz) 02/29/2024 1:16 P M CDT Height 177.8 cm (5' 10 ) 02/29/2024 1:16 PM CDT Body Mass Index 26.29 02/29/2024 1:16 PM CDT Plan of Treatment Not on file Medical Devices Implanted Type Area Transactional Paralegal Device Identifier Shelf Expiration Date Model / Serial / Lot Medtronic Inc [place] Icd Mri Surescan Df4 [id number] - [id number] - [id number] Implanted:Qty: 1 on 04/13/2023 by Riley Cano MD at [facility] ICD Medtronic Inc 06/19/2024 [id number] / [id number] / Medtronic Inc Capsurefix Novus 6.2fr 2mm 52cm Bipolar Screw In Implantable Latex Free 5076-52 - [id number] - [id number] Implanted:Qty: 1 on 04/13/2023 by Riley Cano MD at [facility] Lead Right: Atria Medtronic Inc 11/30/2024 5076-52 / [id number] / Medtronic Inc Sprint Quattro Secure 62cm Tripolar Screw In Extendable [id number] - [id number] - [id number] Implanted:Qty: 1 on 04/13/2023 by Riley Cano MD at [facility] Lead Right: Ventricle Medtronic Inc 02/02/2025 [id number] / [id number] / System Coronary Stent Synergy Pebax Everolimus Eluting Native Chromium Plga L28 Mm L144 Cm Od2.5 Mm Radiopaque 1 Access Port Inflation Lumen Accepts .014 In Guidewire - [id number] Implanted:Qty: 1 on 05/20/2017 by Amarjit Fountain MD at [facility] [employer] [place] 11/24/2017 [id number] / / [id number] System Coronary Stent Synergy Pebax Everolimus Eluting Native Chromium Plga L24 Mm L144 Cm Od2.75 Mm Radiopaque 1 Access Port Inflation Lumen Accepts .014 In Guidewire - [id number] Implanted:Qty: 1 on 05/20/2017 by Amarjit Fountain MD at [facility] [employer] [place] 06/24/2017 [id number] / / [id number] Card[employer] [facility] Device Vascular Closure Femoral Artery Bioabsorbable Dual Method Vascade 6-7fr Collagen [id number] - [id number] Implanted:Qty: 1 on 09/24/2022 by Amarjit Fountain MD at [facility] Medical [facility] 05/20/2024 [id number] / / [id number] Medtronic Card Vasc Surgery 3.0 X 08mm [place] Rx Coronary Stent [id number] - [id number] Implanted:Qty: 1 on 10/14/20[facility] 07/24/2024 [id number] / / [id number] Access Closure Inc Mynx Control 6-7fr 2 Mode Balloon Catheter Sealant Lock Syringe [id number] - [id number] Implanted:Qty: 1 on 10/14/2022 by Amarjit Fountain MD at [facility] [employer] 04/05/2024 [id number] / / [id number] Procedures Procedure Name Priority Date/Time Associated Diagnosis Comments DEVICE CHECK - IN OFFICE Routine 08/15/2024 12:50 PM CDT Ischemic cardiomyopathy from Last 3 Months Results * DEVICE CHECK - IN OFFICE (08/15/2024 12:50 PM CDT) Anatomical Region Laterality Modality Other Narrative 08/16/2024 10:55 AM CDT Medtronic Dual ICD. Dx; ICM. DOI 04/13/2023-Kahanda. Deglado. Carelink remote. Supervising MD: Dr Bell. Interrogation of AAI<>DDD ICD demonstrated appropriate device function. Left pectoral incision well approximated without redness, drainage, or edema noted. Battery function-3.03V, 12.4 years remaining battery longevity to DEANN. Charge time-3.9 seconds. Appropriate lead measurements noted. Presenting rhythm- -VS-Sinus Bradycardia @ 58 bpm. AP-13%, RAG GRADER-<0.1%. No Atrial high rate episodes noted. 1 Ventricular tachy arrhythmia recorded, iegm NSVT, self terminated. Medications; Plavix, Coreg, Entresto. No programming changes made to device settings. Office device f/u 11/20/2025. Carelink remote f/u 11/21/2024. Lulu Carranza, RN Amarjit Fountain MD CV CARDIAC SERVICES PROCEDURES F inal Result from Last 3 Months Insurance [facility] Member Subscriber Plan / Payer (Ef fective 2012-Present) Name:JARROD ALEMAN Relation to Subscriber:Self Name:Jarrod Aleman Payer ID:[id number] ([facility]) Type:MEDICARE RISK OTHER Address: [address] [place] [id number] Advance Directives For more information, please contact: [phone] * Full Code (Latest Code Status on File) Date Activated Date Inactivated Comments 04/13/2023 2:38 PM 04/14/2023 3:34 PM * Full Code Date Activated Date Inactivated Comments 05/20/2017 5:07 PM 05/21/2017 2:38 PM Care Teams Hospice Bereavement Coordinator Relationship Specialty Start Date End Date Roque Hinton MD [address] [place] [address] PCP - General Emergency Medicine 04/11/17 Roque Hinton MD [address] [place] [address] Emergency Medicine 06/20/17
--- OUTSIDE RECORDS SUMMARY | 2024-09-09 16:54 | XMS_ITS | Encounter Summary ---
Author Organization [facility] Address [address] [place] [address] Care Team Providers Care Glass Blower Name Role Phone Roque Hinton MD Primary Care Provide r Roque Hinton MD Unavailable +- [phone] Encounter Details Date Type Department Care Team (Late st Contact Info) Description 07/12/2017 Orders Only [facility] Information Management [address] [place] [id number] Scanning, Provider Social History Tobacco Use Types Packs/Day Years Used Date Smoking Tobacco: Former Smokeless Tobacco: Never Alcohol Use Standard Drinks/Week Comments No 0 (1 standard drink = 0.6 oz pur e alcohol) Sex and Gender Information Value Date Recorded Sex Assigned at Not on file Legal Sex Male 8:49 AM SOUND RANGING CREWMEMBER Gender Identity Not on file Sexual Orientation Not on file documented as of this encounter Plan of Treatment Not on file documented as of this encounter Procedures Procedure Name Priority Date/Time Associated Diagnosis Comments SCAN - LABS 07/12/2017 12:00 AM SOUND RANGING CREWMEMBER documented in this encounter Results * SCAN - LABS (07/12/2017 12:00 AM SOUND RANGING CREWMEMBER) us Provider Scanning Edited Result - Final documented in this encounter Visit Diagnoses Not on filedocumented in this encounter Care Teams Glass Blower Relationship Specialty Start Date End Date Roque Hinton MD [address] [place] [address] PCP - General Emergency Medicine 04/11/17 Roque Hinton MD [address] [place] [address] Emergency Medicine 06/20/17 documented as of this encounter
--- OUTSIDE RECORDS SUMMARY | 2024-09-09 16:54 | XMS_ITS | Clinical Summary ---
Author Organization [facility] [address] [facility] [address] Address [address] [place] [address] Care Team Providers Care Vascular Neurologist Name Role Phone Roque Hinton MD Primary Care Provide r Roque Hinton MD Unavailable +- [phone] Allergies No known active allergies Medications cholecalcifero [...] reflux disease) Coronary artery disease invo lving quileute coronary artery of quileute heart with unstable angina pectoris Essential hypertension Dyslipidemia Encounters Date Type Department Care Team Description 08/30/2024 Telephone [facility] Medical [facility] Cardiology [address] [place] [address] [place] [phone] Amarjit Fountain MD 08/28/2024 Telephone [facility] Cardiology [address] [place] [address] [place] [phone] Amarjit Foutnain MD 08/27/2024 Documentation [facility] Cardiology [address] [facility] [address] [place] [phone] Eliza Huizar MA 08/15/2024 1:30 PM CDT Ancillary Procedure [facility] Cardiology [address] [facility] [address] [place] [phone] Automatic implantable cardiac defibrillator in situ (Primary Dx); Ischemic cardiomyopathy 08/14/2024 Telephone [facility] Cardiology [address] [facility] [address] [place] [phone] Amarjit Fountain MD from Last 3 Months Immunizations Immunization Administration Dates Next Due Influenza, Unspecified 04/06/2017 Surgical History Surgery Date Site/Laterality Comments CATARACT EXTRACTION W/ INTRAOCULAR LENS IMPLANT Right Medical History Medical History Date Comments Diabetes mellitus (HCC) Hypertension GERD (gastroesophageal reflux disease) Type 2 diabetes mellitus (HCC) Arthritis Automatic implantable cardiac defibrillator in s itu Family History Medical History Relation Name Comments Heart disease Father Colon cancer Mother Relation Name Status Comments Father Mother Social History Tobacco Use Types Packs/Day Years [...] on file Legal Sex Male 8:49 AM HOSPITAL RECEIVING CLERK Gender Identity Not on file Sexual Orientation Not on file Obstetrics History Last Filed Vital Signs Vital Sign Reading Time Taken Comments Blood Pressure 102/70 02/29/2024 1:16 PM CDT Pulse 64 02/29/2024 1:16 PM CDT Temperature 36.8 C (98.2 F) 04/13/2023 11:27 PM HOSPITAL RECEIVING CLERK Respiratory Rate 16 02/14/2024 11:15 AM CDT Oxygen Saturation 97% 02/29/2024 1:16 PM CDT Inhaled Oxygen Concentration - - Weight 83.1 kg (183 lb 3.2 oz) 02/29/2024 1:16 P M CDT Height 177.8 cm (5' 10 ) 02/29/2024 1:16 PM CDT Body Mass Index 26.29 02/29/2024 1:16 PM CDT Plan of Treatment Health Maintenance Due Date Last Done Comments Depression Screening 1945 Hepatitis C Screening 1945 Hepatitis B Screening 08/11/1965 Abdominal Aortic Aneurysm (A AA) Screen 08/11/2012 Well Visit 65+ 08/11/2012 DTaP/Tdap/Td Vaccine (2 - Td or Tdap) 06/06/2013 06/06/2003 Zoster Vaccine (2 of 3) 12/23/2017 10/28/2017, 08/23 Pneumococcal vaccine 65+ (2 of 2 - PCV) 08/23/2018 08/23/2017, 04/06/2006 Fall Risk Assessment 04/14/2024 04/14/2023 Influenza Vaccine (Season Ended) 2025 04/06/2017, 03/01/2012, 03/17/2011, Additional history exists Medical Devices Implanted Type Area Catapult And Arresting Gear Officer Device Identifier Shelf Expiration Date Model / Serial / Lot Medtronic Inc [place] [address] Icd Mri Surescan Df4 [id number] - [id number] - [id number] Implanted:Qty: 1 on 04/13/2023 by Riley Cano MD at [facility] ICD Medtronic Inc 06/19/2024 [id number] / [id number] / Medtronic Inc Capsurefix Novus 6.2fr 2mm 52cm Bipolar Screw In Implantable Latex Free 5076-52 - [id number] - [id number] Implanted:Qty: 1 on 04/13/2023 by Riley Cano MD at [facility] Lead Right: Atria Medtronic Inc 11/30/2024 5076-52 / [id number] / Medtronic Inc Sprint Quattro Secure 62cm Tripolar Screw In Extendable [id number] - [id number] - [id number] Implanted:Qty: 1 on 04/13/2023 by Riley Cano MD at [facility] Lead Right: Ventricle Medtronic Inc 02/02/2025 [id number] / [id number] / System Coronary Stent Synergy Pebax Everolimus Eluting [place] Chromium Plga L28 Mm L144 Cm Od2.5 Mm Radiopaque 1 Access Port Inflation Lumen Accepts .014 In Guidewire - [id number] Implanted:Qty: 1 on 05/20/2017 by Amarjit Fountain MD at [facility] [employer] 11/24/2017 [id number] / / [id number] System Coronary Stent Synergy Pebax Everolimus Eluting [place] Chromium Plga L24 Mm L144 Cm Od2.75 Mm Radiopaque 1 Access Port Inflation Lumen Accepts .014 In Guidewire - [id number] Implanted:Qty: 1 on 05/20/2017 by Amarjit Fountain MD at [facility] [employer] 06/24/2017 [id number] / / [id number] [employer] Device Vascular Closure Femoral Artery Bioabsorbable Dual Method Vascade 6-7fr Collagen [id number] - [id number] Implanted:Qty: 1 on 09/24/2022 by Amarjit Fountain MD at [facility] [employer] 05/20/2024 [id number]- [id number] / / [id number] [facility] Vasc Surgery 3.0 X 08mm [place] Rx Coronary Stent [id number] - [id number] Implanted:Qty: 1 on 10/14/2022 by Amarjit Fountain MD at [facility] Vasc Surgery 07/24/2024 [id number] / / [id number] Access Closure Inc Mynx Control 6-7fr 2 Mode Balloon Catheter Sealant Lock Syringe [id number] - [id number] Implanted:Qty: 1 on 10/14/2022 by Amarjit Fountain MD at [facility] [employer] 04/05/2024 [id number] / / [id number] Procedures Procedure Name Priority Date/Time Associated Diagnosis Comments DEVICE CHECK - IN OFFICE Routine 08/15/2024 12:50 PM CDT Ischemic cardiomyopathy from Last 3 Months Results * DEVICE CHECK - IN OFFICE (08/15/2024 12:50 PM CDT) Anatomical Region Laterality Modality Other Narrative 08/16/2024 10:55 AM CDT Medtronic Dual ICD. Dx; ICM. DOI 04/13/2023-Kahanda. Delgado. Carelink remote. Supervising MD: Dr Bell. Interrogation of AAI<>DDD ICD demonstrated appropriate device function. Left pectoral incision well approximated without redness, drainage, or edema noted. Battery function-3.03V, 12.4 years remaining battery longevity to DEANN. Charge time-3.9 seconds. Appropriate lead measurements noted. Presenting rhythm- -VS-Sinus Bradycardia @ 58 bpm. AP-13%, BLENDING OPERATOR-<0.1%. No Atrial high rate episodes noted. 1 Ventricular tachy arrhythmia recorded, iegm NSVT, self terminated. Medications; Plavix, Coreg, Entresto. No programming changes made to device settings. Office device f/u 11/20/2025. Carelink remote f/u 11/21/2024. Lulu Carranza, RN Amarjit Fountain MD CV CARDIAC SERVICES PROCEDURES F inal Result from Last 3 Months Insurance [facility] Advance Directives For more information, please contact: [phone] * Full Code (Latest Code Status on File) Date Activated Date Inactivated Comments 04/13/2023 2:38 PM 04/14/2023 3:34 PM * Full Code Date Activated Date Inactivated Comments 05/20/2017 5:07 PM 05/21/2017 2:38 PM Care Teams Vascular Neurologist Relationship Specialty Start Date End Date Roque Hinton MD [address] [place] [address] PCP - General Emergency Medicine 04/11/17 Roque Hinton MD [address] [place] [address] Emergency Medicine 06/20/17
--- OUTSIDE RECORDS SUMMARY | 2024-09-09 16:54 | XMS_ITS | Clinical Summary ---
Author Organization [email or web address] Address [address] [place] [address] Care Team Providers Care Steam Bone Press Tender Name Role Phone Roque Hinton MD Primary Care Provider [phone] Source Comments [email or web address],non-owned Affiliates and Associated Physician Practices is amultiple site organization consisting of ambulatory clinics and hospital sitesin [place], [place], [place] and [place]. This disclosure is being madepursuant to the Care Everywhere program and may not contain all information available regarding this patient. Last updated 18.[email or web address] Allergies No known active allergies Medications * Be aware that medications may not be up to date on this document. Alwaysverify current medications with the patient. Medication Sig Dispensed Refills Start Date End Date Status chlorhexidine (PERIDEX) 0.12 % solution Swish and spit 2 times daily 473 mL 01/09/2021 Active HYDROcodone-acetami nophen 7.5-325 MG/15ML solution Take 5 mL by mouth every 4 hours as needed for Pain Do not exceed 3 grams of acetaminophen (TYLENOL) daily. 118 mL 01/09/2021 Active Social History Tobacco Use Types Packs/Day Years Used Date Smoking Tobacco: Never Smokeless Tobacco: Never Alcohol Use Standard Drinks/Week Comments Not Currently 0 (1 standard drink = 0.6 oz pur e alcohol) Sex and Gender Information Value Date Recorded Sex Assigned at Not on file Gender Identity Not on file Sexual Orientation Not on file Last Filed Vital Signs Vital Sign Reading Time Taken Comments Blood Pressure 165/104 01/10/2021 12:00 AM CDT Pulse 98 01/10/2021 12:00 AM CDT Temperature 36.9 C (98.5 F) 01/09/2021 7:32 PM CDT Respiratory Rate 16 01/10/2021 12:00 AM CDT Oxygen Saturation 92% 01/10/2021 12:00 AM CDT Inhaled Oxygen Concentration - - Weight 93 kg (205 lb) 01/09/2021 7:32 PM CDT Height 177.8 cm (5' 10 ) 01/09/2021 7:32 PM CDT Body Mass Index 29.41 01/09/2021 7:32 PM CDT Plan of Treatment Health Maintenance Due Date Last Done Comments HEPATITIS C SCREENING 08/07/1965 DTAP/TDAP/TD VACCINES (1 - Tdap) 08/11/1966 PNEUMOCOCCAL VACCINE 50+ (1 of 1 - PCV) 08/11/1997 ZOSTER VACCINE (1 of 2) 08/11/1997 Respiratory Syncytial Virus (RSV) Vaccine Pt: or over 60 yrs (1 - 1-dose 75+ series) 08/11/2022 COVID-19 VACCINE ( - 2023-2 5 season) 2024 DEPRESSION SCREENING 06/06/2024 MEDICARE AWV CALENDAR YEAR 2024 INFLUENZA VACCINE (Season Ended) 2025 04/06/2017, 03/01/2012 HEPATITIS B VACCINE Aged Out No longe r eligible based on patient's age to complete this topic HIB VACCINE Aged Out No longer eligi ble based on patient's age to complete this topic HPV VACCINE Aged Out No longer eligi ble based on patient's age to complete this topic MENINGOCOCCAL (Group B) VACCINE SHARED DECISION-MAKING Aged Out No longer eligible based on patient's age to complete this topic MENINGOCOCCAL GROUPS A/C/Y/W VACCINE Aged Out No longer eligible b ased on patient's age to complete this topic Care Teams Steam Bone Press Tender Relationship Specialty Start Date End Date Roque Hinton MD [address] [place] [address] [address] [place] [address] PCP - General 12/04/18
[2024-09-09 16:59] LABS: Anion Gap 11 mmol/L (4-12); Blood Urea Nitrogen 13 mg/dL (9-20); Calcium 9.9 mg/dL (8.4-10.2); Carbon Dioxide 27 mmol/L (22-30); Chloride 104 mmol/L (98-107); Estimated Glomerular Filt Rate > 60; Glucose 82 mg/dL (65-110); Potassium 3.3 mmol/L (3.4-5.0); Sodium 142 mmol/L (137-145)
[2024-09-09 17:13] LABS: Glucose Point of Care 177 mg/dl (65-105)
--- NOTE | 2024-09-09 17:20 | PC.NURSE ---
Dextrose infusion finished. Repeat FSBS 177. Pt now A&Ox4, denies pain, reports he does feel slightly nauseated. Pt speaking with family at bedside. Pt is unable to recall how much insulin he took prior to arrival. MD Velez made aware of improved status. Plan for zofran for nausea and for pt to eat. Dinner tray ordered.
[2024-09-09] MEDS: ONDANSETRON INJ 4 MG/2 ML VIAL IV PUSH (17:35)
[2024-09-09 18:12] LABS: Add Urine Microscopic? YES; Appearance Urine Clear (Clear); Bacteria Urine None Seen /hpf; Bilirubin Urine Negative (Negative); Blood Urine Negative (Negative); Color Urine Yellow (Yellow); Glucose Urine UA 3+ mg/dL (Negative); Ketones Urine Negative (Negative); Leukocyte Esterase Ur Negative LEU/UL (Negative); Nitrate Urine Negative (Negative); Non Pathogenic Casts 0-2; Protein Urine 1+ mg/dL (Negative); RBC Urine 0-2 /hpf (0-2); Specific Grav Ur 1.023 (1.001-1.035); Squamous Epithelial Cell Urine None Seen /hpf (Few); WBC Urine 0-5 /hpf (0-3)
--- NOTE | 2024-09-09 18:49 | ED_ITS ---
HPI - Altered Mental Status General Chief Complaint: Altered Mental Status Stated Complaint: low BS Time Seen by Provider: 09/09/24 16:44 Source: family and EMS Mode of arrival: EMS Limitations: clinical condition History of Present Illness HPI narrative: 79-year-old with a history diabetes requiring insulin was brought in from home by the altered mental status his blood sugar was found to be low he was given 1 mg of glucagon by EMS however by the time he came to the ER is little more alert but he is still confused. His states that he ate a doughnut and had a cup of coffee this morning did not eat much for lunch however he went into case insulin which he does not remember how many units and what kind. Patient denies having any headache or chest pain or shortness of breath. MD complaint: altered mental status Onset (ago): hour(s) (1) Timing confirmed by: spouse Severity: moderate Context: other (Diabetic) Associated symptoms: denies other symptoms Related Data Home Medications ?Medication ?Instructions ?Recorded ?Confirmed ?Last Taken ?Type atorvastatin 80 mg tablet 80 mg PO DAILY 11/03/22 08/09/24 Unknown History carvedilol 6.25 mg tablet 6.25 mg PO BID 11/03/22 08/09/24 Unknown History cholecalciferol (vitamin D3) 100 100 mcg PO DAILY 11/03/22 08/09/24 Unknown History mcg (4,000 unit) tablet furosemide 40 mg tablet 40 mg PO DAILY 11/03/22 08/09/24 Unknown History potassium chloride 10 mEq 10 meq PO DAILY 11/03/22 08/09/24 Unknown History capsule,extended release sacubitril 49 mg-valsartan 51 mg 1 tablet PO BID 11/03/22 08/09/24 Unknown History tablet (Entresto) spironolactone 25 mg tablet 25 mg PO DAILY 11/03/22 08/09/24 Unknown History empagliflozin 25 mg tablet 25 mg PO DAILY 09/20/23 08/09/24 Unknown History (Jardiance) Allergies Allergy/AdvReac Type Severity Reaction Status Date / Time No Known Allergies Allergy Verified 07/03/24 10:58 Review of Systems 2 Review of Systems: All systems reviewed & are unremarkable except as noted in HPI and below Constitutional: Constitutional: Reports no additional constitutional complaints Eyes: Eyes: Reports no additional eye complaints ENT: Reports system reviewed and no additional complaints, except as documented Cardiovascular: Cardiovascular: Reports no additional cardiovascular complaints Respiratory: Respiratory: Reports no additional respiratory complaints Gastrointestinal: Gastrointestinal: Reports no additional gastrointestinal complaints Musculoskeletal: Musculoskeletal: Reports no additional musculoskeletal complaints Neurologic: Reports as per [facility] Past Medical History Medical History Erectile dysfunction Body mass index (BMI) 23 or greater (10/06/15) Weakness of left upper extremity Type 2 diabetes mellitus without complication SOB (shortness of breath) Right-sided low back pain without sciatica Right inguinal hernia Patient had no falls in past year Neck mass History of prostate cancer GERD without esophagitis Epidermal inclusion cyst Carpal tunnel syndrome of right wrist Acute recurrent maxillary sinusitis Acquired absence of other left toe(s) Abscess of neck Abnormal stress test Abdominal wall abscess Radial head fracture, closed Fx pisiform-closed GERD (gastroesophageal reflux disease) High cholesterol Pneumonia Hearing loss Blindness Wears glasses Vision changes Subcondylar fracture of right side of mandible Impacted cerumen of both ears Heart attack Leg swelling History of recent fall Elbow fracture, left Wrist fracture, left Mandibular fracture Prostate CA Encounter for other specified surgical aftercare Inguinal hernia of right side without obstruction or gangrene Inguinal hernia CKD (chronic kidney disease), stage III Diabetes mellitus HLD (hyperlipidemia) HTN (hypertension) CAD (coronary artery disease) stent x 2018 ASHD (arteriosclerotic heart disease) HLD (hyperlipidemia) HTN (hypertension) Surgical History Surgical History History of penile implant H/O heart artery stent H/O inguinal hernia repair 01/31/20 RIH repair with 6cm Parietex mesh. History of penile implant Family History Family History Father Diabetes mellitus Acute myocardial infarction, Onset Age: 84 Hypertension Mother Family history of malignant neoplasm of ovary, Onset Age: 78 Other Family history of malignant neoplasm Social History Social History Smoking status: Former smoker Tobacco type: cigars Smoking end date: 06/06/14 Additional smoking assessment comments: SMOKED 2-3 CIGARS/DAY Alcohol intake: never Current Housing: Decline to Answer Concerned About Future Housing: Decline to Answer Difficulty Paying Gas/Electric Bills: Decline to Answer Difficulty Paying for Meds: Decline to Answer Currently Unemployed: Decline to Answer Education: Decline to Answer Difficulty w/ Childcare or Family Care: Decline to Answer Living arrangements: with family Spiritual care concerns: No Exam 2 Narrative: GENERAL:confused HEAD: Normocephalic, atraumatic. EYES: PERRLA and EOMI. ENT: Nares clear, no rhinorrhea or epistaxis. Mucous membranes moist. NECK: Supple. CHEST: Clear to auscultation. No respiratory distress. HEART: Regular rate and rhythm. No murmur heard. Normal peripheral pulses. ABDOMEN: Soft, nontender, nondistended, normal active bowel sounds. EXTREMITIES: Normal range of motion. No edema. SKIN: Warm, dry, no rash. NEURO: No focal deficits. Alert PSYCH: Normal mood and affect. Course Course Emergency Course: Patient was given D10 bolus he is more alert and awake was able to answer all the questions. Patient did confirm that he has not eaten his lunch however did take his insulin . He was given l denied tray he is much more alert and awake and he feels comfortable going home. I discussed lab work and x-ray findings with the patient and the family. They do feel comfortable going home. I did advise him to take it shows there is a DVT clinically and make sure he eats when he takes his insulin. Vital Signs Vital signs: Vital Signs Pulse Rate 76 09/09/24 16:13 Respiratory Rate 12 09/09/24 16:13 Blood Pressure 186/90 H 09/09/24 16:13 Pulse Oximetry 100 09/09/24 16:13 Oxygen Delivery Room Air 09/09/24 16:13 Temperature 35.3 C L 09/09/24 16:50 Pulse Rate 76 09/09/24 16:20 Respiratory Rate 12 09/09/24 16:13 Blood Pressure 186/90 H 09/09/24 16:13 Pulse Oximetry 100 09/09/24 16:13 Oxygen Delivery Room Air 09/09/24 16:25 MDM - Altered Mental Status Lab Data 09/09/24 16:41 09/09/24 16:41 Labs: Lab Results 09/09/24 09/09/24 09/09/24 Range/Units 16:41 17:10 17:51 WBC 8.6 (4.5-10.0) K/mm3 RBC 5.18 (4.6-6.20) M/mm3 Hgb 15.2 (14.0-18.0) g/dL Hct 47.8 (42.0-52.0) % MCV 92.3 (80-100) fl MCH 29.3 (26-34) pg MCHC 31.8 L (32-36) g/dl RDW 12.9 (11.5-14.5) % Plt Count 235 (150-375) k/mm3 MPV 10.5 H (7.4-10.4) fl Immature Gran % (Auto) 0.2 (0-0.5) % Neut % (Auto) 51.5 (45.5-73.1) % Lymph % (Auto) 37.3 (18.3-44.2) % [place] % (Auto) 9.3 H (2.6-8.5) % Eos % (Auto) 1.3 (0-4.4) % Baso % (Auto) 0.4 (0.2-1.2) % Lymph # (Auto) 3.19 (0.9-3.2) K/mm3 [place] # (Auto) 0.8 H (0.1-0.6) K/mm3 Eos # (Auto) 0.1 (0-0.3) K/mm3 Baso # (Auto) 0.0 (0.0-0.1) K/mm3 Abs Immat Gran (auto) 0.02 (0.00-0.031) K/mm3 Absolute Neuts (auto) 4.4 (1.3-6.7) K/mm3 Absolute Nucleated RBC 0.000 (0.0-0.012) K/mm3 Nucleated RBC % 0.0 (0.0-0.2) % Sodium 142 (137-145) mmol/L Potassium 3.3 L (3.4-5.0) mmol/L Chloride 104 (98-107) mmol/L Carbon Dioxide 27 (22-30) mmol/L Anion Gap 11 (4-12) mmol/L BUN 13 (9-20) mg/dL Creatinine 0.62 L (0.7-1.3) mg/dL Estim Creat Clear Calc Not Reportable Estimated GFR > 60 (59 - ) Glucose 82 (65-110) mg/dL POC Capillary Glucose 177 H (65-105) mg/dl Calcium 9.9 (8.4-10.2) mg/dL Urine Color Yellow (Yellow) Urine Appearance Clear (Clear) Urine pH 5.0 (5.0-9.0) Ur Specific [place] 1.023 (1.001-1.035) Urine Protein 1+ H (Negative) mg/dL Urine Glucose (UA) 3+ H (Negative) mg/dL Urine Ketones Negative (Negative) mg/dL Ur Blood (Man) Negative (Negative) Urine Nitrate Negative (Negative) Urine Bilirubin Negative (Negative) Urine Urobilinogen 1.0 (<2.0) mg/dL Leukocyte Esterase Rfl Negative (Negative) [place]/UL Urine RBC 0-2 (0-2) /hpf Urine WBC 0-5 (0-3) /hpf Ur Squamous Epith Cells None seen (Few) /hpf Urine Bacteria None seen /hpf Urine Casts 0-2 Imaging Data Radiologist's impression: ITS Impressions Chest X-Ray 09/09/24 18:33 IMPRESSION: No focal infiltrate or effusion. Discharge Plan Discharge Clinical Impression: Altered mental status, Hypoglycemia due to insulin Patient Disposition: Home, Self-Care Condition: Stable Instructions: Hypoglycemia in a Person with Diabetes (DC) Additional Instructions: Check your blood sugars every 6 hours for 1-2 days, eat and then take insulin Patient Language: Chinese Prescriptions: No Action Jardiance 25 mg tablet 25 mg PO DAILY metoclopramide HCl [Reglan] 10 mg tablet 10 mg PO TID Qty: 90 2RF oxycodone-acetaminophen [Percocet] 5-325 mg tablet 1 tablet PO Q6H PRN (Reason: pain) Qty: 30 0RF furosemide 40 mg tablet 40 mg PO DAILY atorvastatin 80 mg tablet 80 mg PO DAILY potassium chloride 10 mEq capsule, extended release 10 meq PO DAILY carvedilol 6.25 mg tablet 6.25 mg PO BID Rx Instructions: must administer with a meal/food spironolactone 25 mg tablet 25 mg PO DAILY cholecalciferol (vitamin D3) 100 mcg (4,000 unit) tablet 100 mcg PO DAILY Entresto 49-51 mg tablet 1 tablet PO BID (DME) insulin syringe-needle U-100 [BD Insulin Syringe Ultra-Fine] 1 mL 31 gauge x 5/16 syringe See Rx Instructions .ROUTE .MEDSUPPLY Qty: 400 3RF Rx Instructions: Use to inject Novolog TID and Lantus QD (DME) pen needle, diabetic [BD Ultra-Fine Mini Pen Needle] 31 gauge x 3/16 needle See Rx Instructions .Route Qty: 100 1RF Rx Instructions: use as directed insulin aspart U-100 100 unit/mL solution 1 sliding scale dose subcut USEASDIRECTD Qty: 30 3RF Rx Instructions: INJECT UNDER THE SKIN PER SLIDING SCALE PROTOCOL. MAX OF 20 UNITS DAILY *DISCARD VIAL 28 DAYS AFTER OPENING*; insulin aspart U-100 100 unit/mL solution 1 sliding scale dose subcut USEASDIRECTD Qty: 30 3RF Rx Instructions: INJECT UNDER THE SKIN PER SLIDING SCALE PROTOCOL. MAX OF 20 UNITS DAILY *DISCARD VIAL 28 DAYS AFTER OPENING*; pantoprazole 40 mg tablet,delayed release (DR/EC) See Rx Instructions .ROUTE .COMPLEX Qty: 90 2RF Dose Instruction: TAKE 1 TABLET BY MOUTH EVERY DAY IN THE MORNING Rx Instructions: TAKE 1 TABLET BY MOUTH EVERY DAY IN THE MORNING fluticasone propionate 50 mcg/actuation spray,suspension See Rx Instructions .ROUTE .COMPLEX Qty: 48 2RF Dose Instruction: SPRAY 1 - 2 SPRAY NASAL DAILY ADMINISTER INTO EACH NOSTRIL Rx Instructions: SPRAY 1 - 2 SPRAY NASAL DAILY ADMINISTER INTO EACH NOSTRIL cyclobenzaprine 10 mg tablet See Rx Instructions .ROUTE .COMPLEX Qty: 30 2RF Dose Instruction: TAKE 1 TABLET BY MOUTH THREE TIMES A DAY NEEDED FOR MUSCLE SPASM Rx Instructions: TAKE 1 TABLET BY MOUTH THREE TIMES A DAY NEEDED FOR MUSCLE SPASM insulin glargine U-300 conc [Toujeo Max U-300 SoloStar] 300 unit/mL (3 mL) insulin pen See Rx Instructions .ROUTE .COMPLEX Qty: 6 3RF Dose Instruction: INJECT 50 UNITS SUBCUTANEOUSLY EVERY MORNING Rx Instructions: INJECT 30 UNITS SUBCUTANEOUSLY EVERY MORNING tamsulosin 0.4 mg capsule See Rx Instructions .ROUTE .COMPLEX Qty: 90 2RF Dose Instruction: TAKE 1 CAPSULE BY MOUTH EVERY DAY Rx Instructions: TAKE 1 CAPSULE BY MOUTH EVERY DAY Follow-up/Referrals: Roque Hinton MD [Primary Care Provider] - Time of Disposition: 19:00
[2024-09-09 19:28] LABS: Glucose Point of Care 301 mg/dl (65-105)
== END 2024-09-09 19:30 | disposition home or self-care (01) ==
PROVIDERS: Emergency Provider Family Medicine; PCP Emergency Medicine
DX: E11.649 Type 2 diabetes mellitus with hypoglycemia without coma (principal); R41.82 Altered mental status, unspecified; E11.22 Type 2 diabetes mellitus with diabetic chronic kidney disease; I12.9 Hypertensive chronic kidney disease with stage 1 through stage 4 chronic kidney disease, or unspecified chronic kidney disease; N18.30 Chronic kidney disease, stage 3 unspecified; I25.10 Atherosclerotic heart disease of native coronary artery without angina pectoris; E78.5 Hyperlipidemia, unspecified; K21.9 Gastro-esophageal reflux disease without esophagitis; Z95.5 Presence of coronary angioplasty implant and graft; Z87.01 Personal history of pneumonia (recurrent); Z85.46 Personal history of malignant neoplasm of prostate; Z87.891 Personal history of nicotine dependence; Z79.84 Long term (current) use of oral hypoglycemic drugs; Z79.899 Other long term (current) drug therapy; Z79.4 Long term (current) use of insulin
CPT/HCPCS: 36415; 71045; 80048; 81001; 82948; 85025; 96374; 99284; J2405